=== PATIENT | male | born 1955 | race Caucasian/White ===

== ENCOUNTER 2022-01-04 17:06 | Inpatient (IN) | payer OTHER ==
[~2022-01-04] VITALS: Ht 165.1 cm; Wt 77.1 kg
[2022-01-04 17:13] VITALS: BP 116/65
[2022-01-04] MEDS ORDERED: NACL 0.9% 1,000 ML IV ONE ×5 (17:20→23:35)
[2022-01-04] MEDS ORDERED: HALOPERIDOL IM 5 MG/ML VIAL ONE (17:24)
[2022-01-04] MEDS ORDERED: HALOPERIDOL IM 5 MG/ML VIAL IM ONE ×2 (17:25→19:50)
--- NOTE | 2022-01-04 17:48 | NUR ---
LABS DRAWN HANDED TO CPT MAGUI AT BEDSIDE.
[2022-01-04 17:56] LABS: BASOPHILS # (AUTO) 0.1 K/uL (0.00-0.22); BASOPHILS % (AUTO) 0.8 % (0.0-2.0); EOSINOPHILS # (AUTO) 0.1 K/uL (0-0.4); EOSINOPHILS % (AUTO) 1.2 % (0.0-4.0); HEMATOCRIT 43.5 % (36-52); HEMOGLOBIN 14.4 g/dL (12.0-18.0); LYMPHOCYTES # (AUTO) 1.6 K/uL (2.0-11.5); LYMPHOCYTES % (AUTO) 18.4 % (20.5-51.1); MEAN CORPUSCULAR HEMOGLOBIN 31 pg (27-31); MEAN CORPUSCULAR HGB CONC 33 g/dL (33-37); MEAN CORPUSCULAR VOLUME 92.8 fL (80-94); MONOCYTES # (AUTO) 0.6 K/uL (0.8-1.0); MONOCYTES % (AUTO) 6.2 % (1.7-9.3); NEUTROPHILS # (AUTO) 6.6 K/uL (1.8-7.7); NEUTROPHILS % (AUTO) 73.4 % (42.2-75.2); PLATELET COUNT (AUTO) 242 K/uL (140-450); RED BLOOD CELL COUNT(AUTO) 4.68 MIL/uL (4.20-6.10); RED CELL DISTRIBUTION WIDTH 14.8 % (11.6-13.7); WHITE BLOOD COUNT (AUTO) 8.9 K/uL (4.8-10.8)
[2022-01-04 18:12] LABS: ALBUMIN 4.4 g/dL (3.4-5.0); ANION GAP 18.5 (8-16); ASPARTATE AMINOTRANSFERASE 57 U/L (15-37); CARBON DIOXIDE 20.3 mmol/L (21-32); CHLORIDE 103 mmol/L (98-107); CREATININE 1.6 mg/dL (0.6-1.3); GFR ARICAN-AMERICAN 58 mL/min (>90); GLUCOSE 119 mg/dL (74-106); POTASSIUM 3.8 mmol/L (3.5-5.1); SODIUM SERUM 138 mmol/L (136-145); TOTAL BILIRUBIN 0.8 mg/dL (0.0-1.0); UREA NITROGEN, BLOOD 22 mg/dL (7-18)
--- NOTE | 2022-01-04 18:13 | NUR ---
56 Y/O MALE BIBA FOR ALCOHOL INTOXICATION. PATIENT SMELLS OF ALCOHOL. EMS BROUGHT HIM FROM THE STREETS. MEDICAL HISTORY: UNKNOWN ALLERGIES: UNOBTAINABLE
[2022-01-04 18:23] LABS: SALICYLATE < 2.8 mg/dL (2.8-20.0)
[2022-01-04 18:24] LABS: ACETAMINOPHEN < 0.5 ug/ml (10-30)
--- NOTE | 2022-01-04 18:28 | NUR ---
PATIENT PULLED OUT IV, RE-INSERTED A NEW ONE. 22GAUGE ON RIGHT WRIST. TOLERATED WELL.
--- NOTE | 2022-01-04 19:16 | NUR ---
Pt report given to MAG BRUNSON. Transfer of care at this time.
--- NOTE | 2022-01-04 19:30 | NUR ---
PER LAST NURSE, CT REFUSED TO TAKE PATIENT TO CT DUE TO PATIENT REFUSING TO TAKE PANTS OFF. PATIENT CONTINUES REFUSE REMOVING PANTS. AWARE.
--- NOTE | 2022-01-04 19:45 | NUR ---
PATIENT AGITATED AND SCREAMING AT STAFF. SECURITY CALLED. JOEL AWARE. ORDERS CARRIED OUT
--- NOTE | 2022-01-04 20:03 | NUR ---
PATIENT YELLINIG ACROSS THE ER. OTHER PATIENTS UPSET FROM THE YELLING. SECURITY CALLED. AWARE.
--- NOTE | 2022-01-04 20:30 | NUR ---
PATIENT CLEANED AND DRESSED IN A GOWN AND NEW BED LINEN. PATIENT CALM AND COOPERATIVE AT THIS TIME.
--- NOTE | 2022-01-04 20:35 | NUR ---
PATIENT READY TO BE TAKEN TO CT. CT CALLED.
--- NOTE | 2022-01-04 20:47 | NUR ---
PATIENT TAKEN TO CT VIA [facility]
--- NOTE | 2022-01-04 20:59 | NUR ---
PT RETURN FROM CT. CT NOT COMPLETED
--- NOTE | 2022-01-04 21:00 | NUR ---
CT NOT COMPLETED, PATIENT NOT ABLE TO STAY STILL DURING CT. PATIENT RETURNED TO BED 8. MD MALDONADO AWARE
--- NOTE | 2022-01-04 22:43 | NUR ---
Dr. Montaño examining patient.
[2022-01-05] MEDS ORDERED: NACL 0.9% 1,000 ML IV ONE ×3 (00:05→02:00)
[2022-01-05] MEDS ORDERED: DEXTROSE 25% 10 ML SYR IVP ONE (00:05)
--- NOTE | 2022-01-05 00:12 | NUR ---
FAMILY AT BEDSIDE
[2022-01-05] MEDS ORDERED: DEXTROSE 50% 50 ML SYR IVP ONE (00:20)
--- NOTE | 2022-01-05 00:31 | NUR ---
PATIENT FAMILY ROBIN AT BEDSIDE. ROBIN STATED THAT SHE WOULD LIKE TO BE CALLED IN CASE OF EMERGENCY .
--- NOTE | 2022-01-05 01:10 | NUR ---
URINE AND ALISHA COLLECTED AND WALKED TO LAB
[2022-01-05] MEDS ORDERED: HYDROcodone/APAP 5/325 MG 1 TAB TAB PO PRN (01:45)
[2022-01-05] MEDS ORDERED: KCL 20 MEQ/WATER INJ PREMIX 200 ML IV PRN ×2 (01:45→02:00)
[2022-01-05] MEDS ORDERED: MAGNESIUM OXIDE 400 MG TAB PO PRN ×2 (01:45→02:00)
[2022-01-05] MEDS ORDERED: MAG SULF 2000 MG/WATER PREMIX 50 ML IV PRN ×2 (01:45→02:00)
[2022-01-05] MEDS ORDERED: POTASSIUM CHLORIDE 10 MEQ TABER PO PRN ×2 (01:45→02:00)
[2022-01-05] MEDS ORDERED: ONDANSETRON 4 MG/2 ML VIAL IVP PRN ×2 (01:45→02:00)
[2022-01-05] MEDS ORDERED: ACETAMINOPHEN 325 MG TAB PO PRN ×2 (01:45→02:00)
--- NOTE | 2022-01-05 01:49 | NUR ---
RAD AT BEDSIDE
[2022-01-05 01:50] LABS: BARBITURATE, URINE NEGATIVE ng/ml (NEG <=200); BENZODIAZEPINE, URINE NEGATIVE ng/mL (NEG <=200); CANNABINOID, URINE POSITIVE ng/mL (NEG <=50); COCAINE, URINE NEGATIVE ng/mL (NEG <=300); OPIATE, URINE NEGATIVE ng/mL (NEG <=2000); PHENCYCLIDINE SCREEN,URINE NEGATIVE ng/mL (NEG <=25)
[2022-01-05] MEDS ORDERED: LORazepam 1 MG TAB PO PRN ×4 (01:50→02:00)
[2022-01-05] MEDS ORDERED: MULTIVITAMIN-12 10 ML, FOLIC ACID 1 MG in NACL 0.9% 1,000 ML IV ONE ×2 (01:55→02:00)
[2022-01-05] MEDS ORDERED: MAG SULF 2000 MG/WATER PREMIX 50 ML IV ONE ×2 (01:55→02:00)
--- NOTE | 2022-01-05 02:34 | NUR ---
assisted patient with dima care, all needs met at this time. bed low and locked.
[2022-01-05] MEDS ORDERED: MULTIVITAMIN-12 10 ML VIAL IV ONE (03:21)
[2022-01-05] MEDS ORDERED: FOLIC ACID 5 MG/ML SYR ONE (03:22)
--- NOTE | 2022-01-05 03:35 | NUR ---
Patient pulled out IV. Applied folded 4x4 gauze and tape to stop bleeding.
[2022-01-05] MEDS ORDERED: LORazepam 1 MG TAB PO SCH (05:00)
[2022-01-05] MEDS: LORazepam 1 MG TAB PO SCH ×3 (06:19→20:30)
--- NOTE | 2022-01-05 06:30 | NUR ---
PATIENT SLEEPING IN BED. APPEARS TO BE IN NO DISTRESS, RR EVEN AND UNLABORED. BED LOW AND LOCKED. ALL NEEDS MET AT THIS TIME
--- NOTE | 2022-01-05 07:28 | NUR ---
RECEIVED REPORT FROM MAG BRUNSON FOR TRANSFER OF CARE.
[2022-01-05] MEDS ORDERED: FOLIC ACID 1 MG TAB PO SCH (09:00)
[2022-01-05] MEDS ORDERED: THIAMINE 100 MG TAB PO SCH (09:00)
[2022-01-05] MEDS ORDERED: MULTIVITAMIN 1 TAB PO SCH (09:00)
--- NOTE | 2022-01-05 09:25 | NUR ---
PATIENT IS EATING BREAKFAST, SITTING UP ON BED. CALL LIGHT WITHIN REACH.
[2022-01-05] MEDS: MULTIVITAMIN 1 TAB PO SCH (09:38)
[2022-01-05] MEDS: FOLIC ACID 1 MG TAB PO SCH (09:38)
[2022-01-05] MEDS: THIAMINE 100 MG TAB PO SCH (09:39)
--- NOTE | 2022-01-05 10:05 | NUR ---
PATIENT WAS ASSISTED TO THE RESTROOM AND JORGE-CARE PERFORMED.
[2022-01-05] MEDS: HYDROcodone/APAP 5/325 MG 1 TAB TAB PO PRN ×3 (10:07→20:46)
--- NOTE | 2022-01-05 13:17 | NUR ---
LUNCH TRAY OFFERED TO PATIENT. PATIENT IS SITTING UP AND EATING TRAY.
--- NOTE | 2022-01-05 13:47 | NUR ---
PATIENT WAS ASSISTED TO THE RESTROOM. PATIENT AMBULATED WELL.
--- NOTE | 2022-01-05 15:00 | NUR ---
PATIENT IS LAYING IN BED, CALL LIGHT WITHIN REACH. NO SIGNS OF DISTRESS NOTED. DENIES CHEST PAIN.
--- NOTE | 2022-01-05 15:32 | NUR ---
DC PLANNING: THE PATIENT WAS BIBA AFTER BEING FOUND ALTERED IN AN ALLEY WITH SLURRED SPEECH, AGITATION AND INTOXICATION. ETOH LEVEL ELEVATED, PATIENT WITH LEFT ORBITAL WALL FX ON CT OF HEAD BUT NEGATIVE FOR INFARCT. PATIENT STARTED ON A BANANA BAG, FOLATE, ATIVAN Q 8 HRS AND PRN. CM SPOKE WITH THE PATIENTS YAQUELIN BY PHONE ([phone]) AND CONFIRMED THE ADDRESS AND PHONE NUMBER. THE PATIENT LIVES IN A GROUND FLOOR APARTMENT WITH HIS AND 2 DAUGHTERS. HE IS INDEPENDENT WITH DAILY ACTIVITIES AND USES A CANE WHEN HE WALKS, ALSO HAS DME OF A FWW. NO H/O HOME HEALTH OR SNF PLACEMENT AND [facility] [place] [facility]. HIS FAMILY DRIVES HIM TO HIS APPOINTMENTS AND THE PATIENT DOES NOT USUALLY DRINK HEAVILY OR HAVE AN ISSUE WITH ETOH ABUSE PER HIS . THE DC PLAN IS TO RETURN HOME WITH HOME HEALTH, CM WILL FOLLOW.
--- NOTE | 2022-01-05 15:54 | NUR ---
PATIENT HAS BEEN SCREENED AND CATEGORIZED LOW NUTRITION RISK. PATIENT WILL BE SEEN WITHIN 7 DAYS OF ADMISSION. 01/11/[address]
--- NOTE | 2022-01-05 17:15 | NUR ---
PATIENT HAS FAMILY AT BEDSIDE. PATIENT IS ALERT AND ABLE TO MAKE NEEDS KNOWN. VITAL SIGNS STABLE.
--- NOTE | 2022-01-05 19:20 | NUR ---
Pt report given to MAG BRUNSON. Transfer of care at this time.
--- NOTE | 2022-01-05 20:42 | NUR ---
Patient will be admitted to care of Priya Vigil . Admited to telemetry. Will go to room ICU bed 6. Belongings list completed. Report to Lisa. transfer of care
--- NOTE | 2022-01-05 20:43 | NUR ---
Chart checked and completed.
--- NOTE | 2022-01-05 21:45 | NUR ---
PT ARRIVED TO ICU BED 6 TRANSFERRED FROM ED VIA GURNEY ADMITTED TO THE UNIT TELE STATUS. PT AWAKE AOX4 IN NO APPARENT ACUTE DISTRESS. BREATHING AT RA, LUNGS CLEAR UPON AUSCULTATION, BILATERAL EVEN LUNG EXPANSION WITH NO LABORED BREATHING. L FOOT 20 G AND L FOREARM 22 G PRESENT. PT CONTINENT ABLE TO ASK FOR URINAL. NO TUBES OR DRAINS PRESENT. SKIN WITH BLE SCARS AND SCABS. NO PERSONAL BELONGINGS WITH PT UPON ADMISSION. ALL SAFETY MEASURES IN PLACE, CALL LIGHT WITHIN REACH, WILL CONTINUE TO CLOSELY MONITOR AND FOLLOW POC.
--- NOTE | 2022-01-05 22:05 | NUR ---
ATTEMPTED TO CALL FAMILY TO UPDATE ON PATIENT TRANSFER, NO RESPONSE.
[2022-01-05 23:53] LABS: APPEARANCE,URINE CLEAR (CLEAR); BILIRUBIN,URINE NEGATIVE (NEGATIVE); BLOOD, URINE 1+ (NEGATIVE); COLOR,URINE YELLOW (YELLOW); LEUKOCYTE ESTERASE ,URINE NEGATIVE (NEGATIVE); NITRITE, URINE NEGATIVE (NEGATIVE); UGLUCOSE NEGATIVE (NEGATIVE)
[2022-01-06] VITALS: BP 156/93
[2022-01-06 00:01] LABS: WBC,URINE 0-5 /HPF (0-5)
[2022-01-06] MEDS: HYDROcodone/APAP 5/325 MG 1 TAB TAB PO PRN ×3 (00:35→08:53)
--- NOTE | 2022-01-06 03:24 | NUR ---
PT IN NO APPARENT ACUTE DISTRESS BREATHING AT RA. PT CONSTANTLY YELLS "I WANT MY PAIN MEDICINE" AND IS NOTIFIED HIS NEXT SCHEDULED PRN PAIN MEDICATION IN DUE AT A LATER TIME. PT VERBALIZED UNDERSTANDING. WILL CONTINUE TO CLOSELY MONITOR AND FOLLOW POC.
[2022-01-06 04:00] VITALS: BP 149/96
[2022-01-06] MEDS: LORazepam 1 MG TAB PO SCH (04:50)
[2022-01-06 06:12] LABS: BASOPHILS # (AUTO) 0.1 K/uL (0.00-0.22); BASOPHILS % (AUTO) 0.6 % (0.0-2.0); EOSINOPHILS # (AUTO) 0.4 K/uL (0-0.4); EOSINOPHILS % (AUTO) 4.3 % (0.0-4.0); HEMATOCRIT 43.3 % (36-52); HEMOGLOBIN 14.3 g/dL (12.0-18.0); LYMPHOCYTES # (AUTO) 1.5 K/uL (2.0-11.5); LYMPHOCYTES % (AUTO) 17.1 % (20.5-51.1); MEAN CORPUSCULAR HEMOGLOBIN 31 pg (27-31); MEAN CORPUSCULAR HGB CONC 33 g/dL (33-37); MEAN CORPUSCULAR VOLUME 93.3 fL (80-94); MONOCYTES # (AUTO) 0.6 K/uL (0.8-1.0); MONOCYTES % (AUTO) 7.6 % (1.7-9.3); NEUTROPHILS % (AUTO) 70.4 % (42.2-75.2); PLATELET COUNT (AUTO) 188 K/uL (140-450); RED BLOOD CELL COUNT(AUTO) 4.64 MIL/uL (4.20-6.10); RED CELL DISTRIBUTION WIDTH 14.6 % (11.6-13.7); WHITE BLOOD COUNT (AUTO) 8.6 K/uL (4.8-10.8)
[2022-01-06 07:05] LABS: ALBUMIN 3.9 g/dL (3.4-5.0); ANION GAP 13.9 (8-16); CARBON DIOXIDE 25.9 mmol/L (21-32); CREATININE 0.8 mg/dL (0.6-1.3); MAGNESIUM 2.3 mg/dL (1.8-2.4); POTASSIUM 3.8 mmol/L (3.5-5.1); TOTAL BILIRUBIN 1.1 mg/dL (0.0-1.0)
--- NOTE | 2022-01-06 07:20 | NUR ---
REPORT GIVEN TO DAY SHIFT NURSE FOR CONTINUITY OF CARE. PT IN NO ACUTE DISTRESS.
--- NOTE | 2022-01-06 07:30 | NUR ---
RECEIVED REPORT FROM PRESS TOOL MAKER. PT IN BED WITH HOB ELEVATED. AWAKE, AOX4. NO APPARENT DISTRESS ON ROOM AIR. NO C/O PAIN AT THIS TIME. L FOREARM 22 G PRESENT, SALINE LOCKED. BOWEL AND BLADDER . SKIN WITH BLE SCARS AND SCABS. NO PERSONAL BELONGINGS WITH PT UPON ADMISSION. ALL SAFETY MEASURES IN PLACE, CALL LIGHT WITHIN REACH, WILL CONTINUE TO CLOSELY MONITOR AND FOLLOW POC.
[2022-01-06 08:00] VITALS: BP 168/92
--- NOTE | 2022-01-06 08:00 | NUR ---
SEEN AND EXAMINED BY DR MENDOZA, DISCHARGE ORDERED NOTED, SS CONSULT ORDERED
[2022-01-06] MEDS ORDERED: METH-1681 PO (08:36)
[2022-01-06] MEDS ORDERED: ASPI-1822 PO (08:36)
[2022-01-06] MEDS ORDERED: ATEN100T6 PO (08:36)
[2022-01-06] MEDS ORDERED: AMLO10TA PO (08:36)
[2022-01-06] MEDS: FOLIC ACID 1 MG TAB PO SCH (08:37)
[2022-01-06] MEDS ORDERED: FOLI1TAB90 PO (08:38)
[2022-01-06] MEDS: THIAMINE 100 MG TAB PO SCH (08:38)
[2022-01-06] MEDS ORDERED: THIA-34 PO (08:38)
[2022-01-06] MEDS: MULTIVITAMIN 1 TAB PO SCH (08:38)
[2022-01-06] MEDS ORDERED: LORA-476 PO (08:38)
[2022-01-06] MEDS ORDERED: atenoloL 50 MG TAB PO SCH (09:00)
[2022-01-06] MEDS ORDERED: amLODIPine 5 MG TAB PO SCH (09:00)
[2022-01-06] MEDS ORDERED: methocarbamoL 500 MG TAB PO SCH (09:00)
[2022-01-06] MEDS ORDERED: aMILoride 5 MG TAB PO SCH (09:00)
[2022-01-06] MEDS ORDERED: ASPIRIN 81 MG TAB.CHEW PO SCH (09:00)
--- NOTE | 2022-01-06 09:00 | NUR ---
DUE MEDS GIVEN
[2022-01-06 09:59] VITALS: BP 154/75
--- NOTE | 2022-01-06 10:15 | NUR ---
DISCHARGE INSTRUCTIONS AND PRESCRIPTION GIVEN TO PT AND DAUGHTER IZABELA. VERBALIZED UNDERSTANDING
--- NOTE | 2022-01-06 10:45 | NUR ---
CHINCH[employer] FARMER SPOKE TO PT. PROVIDED RESOURCES FOR ALCOHOL ABUSE
--- NOTE | 2022-01-06 11:30 | NUR ---
pt discharged. in stable condition
[2022-01-06 21:28] LABS: CREATININE,URINE RANDOM 35 mg/dL (30-125); URINE SODIUM, RANDOM 157 mmol/l (40-220)
== END 2022-01-06 11:30 | disposition home or self-care (01) | DRG 469 ==
LOC: EDBD 17:06 → MED 17:06 → MTU 01-05 01:47 → MIC 01-05 21:32
PROVIDERS: ADMIT Internal Medicine; ATTEND Internal Medicine
DX: N17.9 Acute kidney failure, unspecified (principal); E87.2 Acidosis; F10.129 Alcohol abuse with intoxication, unspecified; Y90.9 Presence of alcohol in blood, level not specified; N18.9 Chronic kidney disease, unspecified; Z20.822 Contact with and (suspected) exposure to COVID-19
CPT/HCPCS: 36415; 70450; 71045; 80053; 80305; 81001; 82009; 82570; 83735; 84300; 85025; 87081; 93005; 96361; 96372; 96374; 96375; 99291; A9153; G0480; G0482; J1630; J3475; J3490; J7030; Q0092